=== PATIENT | female | born 1990 | race Caucasian/White ===

== ENCOUNTER 2016-05-12 18:08 | Emergency (ER) | payer OTHER ==
[~2016-05-12] VITALS: Ht 162.6 cm; Wt 61.0 kg
[~2016-05-12 18:08] MED LIST: CITA10TA4 PO; CLON1 PO; IBUP600 PO; SPIR25TA PO
[2016-05-12 18:18] VITALS: BP 106/69; PULSE 85; RESP 16; TEMP 98.3; O2SAT 99
[2016-05-12] MEDS ORDERED: SPIR25TA PO (18:46)
[2016-05-12] MEDS ORDERED: CITA10TA4 PO (18:46)
[2016-05-12] MEDS ORDERED: ROBA750T PO (19:00)
[2016-05-12] MEDS ORDERED: IBUPROFEN 600 MG TAB PO ONE (19:00)
[2016-05-12] MEDS ORDERED: CYCLOBENZAPRINE HCL 10 MG TAB PO ONE (19:00)
[2016-05-12] MEDS ORDERED: IBUP-232 PO (19:00)
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
== END 2016-05-12 19:18 | disposition home or self-care (01) ==
LOC: PHEFT 18:08
DX: S16.1XXA Strain of muscle, fascia and tendon at neck level, initial encounter (principal); S39.012A Strain of muscle, fascia and tendon of lower back, initial encounter; F41.9 Anxiety disorder, unspecified; V43.62XA Car passenger injured in collision with other type car in traffic accident, initial encounter; Y93.9 Activity, unspecified; Y92.9 Unspecified place or not applicable; Y99.9 Unspecified external cause status
CPT/HCPCS: 99283

== ENCOUNTER 2016-05-25 10:48 | Emergency (ER) | payer OTHER ==
[~2016-05-25] VITALS: Ht 165.1 cm; Wt 60.0 kg
[~2016-05-25 10:48] MED LIST changes: -CLON1 PO; +IBUP-232 PO; -IBUP600 PO; +ROBA750T PO
[2016-05-25 10:57] VITALS: BP 105/75; PULSE 65; RESP 15; TEMP 97.8; O2SAT 98
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
== END 2016-05-25 11:32 | disposition home or self-care (01) ==
LOC: PHEFT 10:48
DX: S39.012A Strain of muscle, fascia and tendon of lower back, initial encounter (principal); M54.6 Pain in thoracic spine; V49.40XA Driver injured in collision with unspecified motor vehicles in traffic accident, initial encounter
CPT/HCPCS: 99283

== ENCOUNTER 2017-09-01 17:01 | Emergency (ER) | payer SELFPAY, OTHER ==
[2017-09-01] MEDS: SODIUM CHLOR 0.9% 1000 ML INJ 1,000 ML IV (17:25)
[2017-09-01] MEDS: KETOROLAC TROMETHAMINE 30 MG/ML (IVP) VIAL IV PUSH (17:25)
[2017-09-01 17:40] LABS: AUTOMATED NEUTROPHIL # 5.9 TH/MM3 (1.8-7.7); BASOPHIL # 0.1 TH/MM3 (0-0.2); BASOPHIL % 1.2 % (0.0-2.0); EOSINOPHIL # 0.1 TH/MM3 (0-0.4); EOSINOPHIL % 0.8 % (0.0-4.0); HEMATOCRIT 36.7 % (35.0-46.0); HEMOGLOBIN 12.8 GM/DL (11.6-15.3); LYMPH % 26.2 % (9.0-44.0); LYMPHOCYTE # 2.3 TH/MM3 (1.0-4.8); MEAN CELL VOLUME 90.3 FL (80.0-100.0); MEAN CORPUSCULAR HEMOGLOBIN 31.6 PG (27.0-34.0); MEAN PLATELET VOLUME 9.6 FL (7.0-11.0); MONO % 4.9 % (0.0-8.0); MONOCYTE # 0.4 TH/MM3 (0-0.9); NEUT % 66.9 % (16.0-70.0); PLATELET COUNT 216 TH/MM3 (150-450); RED BLOOD COUNT 4.06 MIL/MM3 (4.00-5.30); RED CELL DISTRIBUTION WIDTH 12.1 % (11.6-17.2); WHITE BLOOD COUNT 8.8 TH/MM3 (4.0-11.0)
[2017-09-01 17:46] LABS: CHLORIDE 104 MEQ/L (98-107); SODIUM (NA) 137 MEQ/L (136-145)
[2017-09-01 17:50] LABS: ALBUMIN 3.7 GM/DL (3.4-5.0); ANION GAP 5 MEQ/L (5-15); BICARBONATE 28.3 MEQ/L (21.0-32.0); BLOOD UREA NITROGEN 10 MG/DL (7-18); GLUCOSE,RANDOM 101 MG/DL (74-106); LIPASE 122 U/L (73-393)
[2017-09-01 17:53] LABS: ALT (GPT) 19 U/L (10-53); AST (GOT) 17 U/L (15-37); CREATININE 0.72 MG/DL (0.50-1.00); GLOMERULAR FILTRATION RATE 96 ML/MIN (>89)
[2017-09-01 17:54] LABS: TOTAL BILIRUBIN ADULT 0.2 MG/DL (0.2-1.0)
[2017-09-01 17:55] LABS: BILIRUBIN, URINE NEG (NEG); BLOOD, URINE TRACE (NEG); GLUCOSE,URINE NEG (NEG); HEMO FLAGS AUTO DIFF; KETONE, URINE NEG (NEG); NITRITE,URINE NEG (NEG); PH, URINE 6.5 (5.0-8.5); URINE COLOR YELLOW (YELLW/STRAW); URINE LEUKOCYTE ESTERASE NEG (NEG)
[2017-09-01 17:56] LABS: ALKALINE PHOSPHATASE 34 U/L (45-117)
[2017-09-01 18:21] LABS: METHOD OF COLLECTION VOIDED
[2017-09-01 18:22] LABS: COMMENT (UR) CULT NOT INDICATED; CULTURE IF INDICATED CULT NOT INDICATED; SQUAMOUS EPITHELIAL CELL URINE 0-3 /hpf (0-5); WBC, URINE 0-2 /hpf (0-5)
[2017-09-01 18:25] LABS: PLATELET ESTIMATE SMEAR NORMAL (NORMAL); PLATELET MORPHOLOGY NORMAL (NORMAL); SCAN/DIFF AUTO DIFF CONFIRMED
== END 2017-09-01 18:38 | disposition home or self-care (01) ==
LOC: PHED 17:01
DX: N83.202 Unspecified ovarian cyst, left side (principal); R06.02 Shortness of breath; F41.9 Anxiety disorder, unspecified; Z79.899 Other long term (current) drug therapy
CPT/HCPCS: 76830; 76856; 80053; 81001; 83690; 84703; 85025; 96374; 99284-25